=== PATIENT | male | born 1945 | race Caucasian/White ===

== ENCOUNTER 2021-02-11 09:09 | Inpatient (IN) | payer MEDICARE ==
[2021-02-11 10:09] LABS: BASOPHIL 1.2 % (0-2); EOSINOPHIL 1.7 % (0-7); HCT 38.7 % (42.0-52.0); LYMPHOCYTE 22.4 % (15-48); MCH 33.1 pg (25.0-31.0); MCHC 33.6 g/dL (32.0-36.0); MCV 98.5 fL (78.0-100.0); MONOCYTE 6.8 % (0-12); MPV 10.6 fL (6.0-9.5); NEUTROPHIL 67.7 % (41-80); NRBC 0; PLT 168 K/uL (150-400); RBC 3.93 M/uL (4.70-6.00); RDW 13.4 % (11.5-14.0); WBC 5.9 K/uL (4.0-10.5)
[2021-02-11 10:15] LABS: INR 3.04 (0.9-1.2)
[2021-02-11 10:20] LABS: ALBUMIN 3.3 g/dL (3.4-5.0); BILIRUBIN - TOTAL 0.8 mg/dL (0.2-1.0); CREATININE 0.87 mg/dL (0.67-1.17); GLOBULIN (CALCULATION) 2.7 g/dL; POTASSIUM 3.4 mmol/L (3.5-5.1)
[2021-02-11 10:28] LABS: CKMB 1.4 ng/mL (0.0-3.6)
[2021-02-11 14:53] LABS: BILIRUBIN NEGATIVE (NEGATIVE); BLOOD NEGATIVE Ery/uL (NEGATIVE); CLARITY CLEAR (CLEAR); COLOR YELLOW (YELLOW); GLUCOSE (U) NORMAL (NORMAL); LEUKOCYTES NEGATIVE Leu/uL (NEGATIVE); NITRITE NEGATIVE (NEGATIVE); PROTEIN 1+ mg/dL (NEGATIVE); SPECIFIC GRAVITY 1.015 (1.001-1.030)
[2021-02-11 15:04] LABS: SQUAMOUS EPITHELIAL CELLS RARE; URINARY WBC RARE
[2021-02-11 15:05] LABS: AMORPHOUS PHOSPHATE CRYSTALS TRACE
[2021-02-11] MEDS ORDERED: LIPITOR40 MG PO (15:29)
[2021-02-11] MEDS ORDERED: LASIX40 MG PO (15:29)
[2021-02-11] MEDS ORDERED: BETAPACE80 MG PO (15:30)
[2021-02-11] MEDS ORDERED: XARELTO10 MG PO (15:30)
[2021-02-11] MEDS ORDERED: LOVAZA1 GM PO (15:30)
[2021-02-11] MEDS ORDERED: VITAMIN B-650 MG PO (15:32)
[2021-02-11] MEDS ORDERED: ENTRESTO 49 MG1 EACH PO (15:32)
[2021-02-11] MEDS ORDERED: K-DUR20 MEQ PO (15:33)
[2021-02-12 03:57] LABS: BASOPHIL 0.9 % (0-2); EOSINOPHIL 1.7 % (0-7); HCT 36.1 % (42.0-52.0); HGB 12.1 g/dl (13.2-18.0); LYMPHOCYTE 23.6 % (15-48); MCH 33.3 pg (25.0-31.0); MCHC 33.5 g/dL (32.0-36.0); MCV 99.4 fL (78.0-100.0); MONOCYTE 11.3 % (0-12); MPV 10.9 fL (6.0-9.5); NEUTROPHIL 62.3 % (41-80); NRBC 0; PLT 141 K/uL (150-400); RBC 3.63 M/uL (4.70-6.00); RDW 13.5 % (11.5-14.0); WBC 6.6 K/uL (4.0-10.5)
[2021-02-12 04:14] LABS: BUN/CREAT RATIO (CALC) 21.7 RATIO; CREATININE 1.06 mg/dL (0.67-1.17); MAGNESIUM 2.1 mg/dL (1.8-2.4); PHOSPHORUS 3.6 mg/dL (2.6-4.7); POTASSIUM 3.8 mmol/L (3.5-5.1)
--- NOTE | 2021-02-12 23:06 | NUR ---
CHANGE IN RHYTHM ON MONITOR, STRIP PRINTED, [facility] CALLED TO REVIEW STRIP, [facility] ORDER STAT EKG, EKG OBTAINED AND SHOWED NSR WITH 1ST DEGREE AV BLOCK WITH PAC'S AND ABERRANT CONDUCTION NON SPECIFIC INTRAVENTRICULAR BLOCK ABNORMAL EKG
[2021-02-13 05:59] LABS: BASOPHIL 0.8 % (0-2); EOSINOPHIL 2.3 % (0-7); HCT 39.7 % (42.0-52.0); HGB 13.3 g/dl (13.2-18.0); LYMPHOCYTE 26.7 % (15-48); MCH 33.1 pg (25.0-31.0); MCHC 33.5 g/dL (32.0-36.0); MCV 98.8 fL (78.0-100.0); MONOCYTE 9.3 % (0-12); MPV 10.7 fL (6.0-9.5); NEUTROPHIL 60.8 % (41-80); NRBC 0; PLT 151 K/uL (150-400); RBC 4.02 M/uL (4.70-6.00); RDW 13.6 % (11.5-14.0); WBC 7.4 K/uL (4.0-10.5)
[2021-02-13 06:19] LABS: BUN/CREAT RATIO (CALC) 23.8 RATIO; CREATININE 0.84 mg/dL (0.67-1.17); POTASSIUM 4.4 mmol/L (3.5-5.1)
== END 2021-02-13 12:48 | disposition home or self-care (01) | DRG 310 ==
LOC: FER 09:09 → FTCU 13:54
PROVIDERS: Emergency Medicine; ADMIT Internal Medicine
DX: I47.2 Ventricular tachycardia (principal); I11.0 Hypertensive heart disease with heart failure; I50.9 Heart failure, unspecified; S80.01XA Contusion of right knee, initial encounter; E78.5 Hyperlipidemia, unspecified; I44.7 Left bundle-branch block, unspecified; I48.91 Unspecified atrial fibrillation; Z20.822 Contact with and (suspected) exposure to COVID-19; I25.10 Atherosclerotic heart disease of native coronary artery without angina pectoris; Z95.1 Presence of aortocoronary bypass graft; Z95.810 Presence of automatic (implantable) cardiac defibrillator; W19.XXXA Unspecified fall, initial encounter; I25.2 Old myocardial infarction; Z87.891 Personal history of nicotine dependence; Z79.01 Long term (current) use of anticoagulants; Z79.899 Other long term (current) drug therapy
CPT/HCPCS: 36415; 71045; 71046; 73560; 80048; 80053; 81001; 82550; 82553; 83605; 83735; 83880; 84100; 84145; 84484; 85025; 85610; 85730; 93005; 94010; J1885; U0002

== ENCOUNTER 2021-03-09 15:28 | Emergency (ER) | payer MEDICARE ==
[~2021-03-09 15:28] MED LIST: BETAPACE80 MG PO; ENTRESTO 49 MG1 EACH PO; K-DUR20 MEQ PO; LASIX40 MG PO; LIPITOR40 MG PO; LOVAZA1 GM PO; VITAMIN B-650 MG PO; XARELTO10 MG PO
[2021-03-09 19:34] LABS: BASOPHIL 0.7 % (0-2); HCT 36.6 % (42.0-52.0); HGB 12.4 g/dl (13.2-18.0); LYMPHOCYTE 30.4 % (15-48); MCH 32.9 pg (25.0-31.0); MCHC 33.9 g/dL (32.0-36.0); MCV 97.1 fL (78.0-100.0); MONOCYTE 8.6 % (0-12); MPV 10.8 fL (6.0-9.5); NRBC 0; PLT 156 K/uL (150-400); RBC 3.77 M/uL (4.70-6.00); WBC 6.1 K/uL (4.0-10.5)
[2021-03-09 20:28] LABS: ALBUMIN 3.1 g/dL (3.4-5.0); BILIRUBIN - TOTAL 0.7 mg/dL (0.2-1.0); BUN/CREAT RATIO (CALC) 19.7 RATIO; CREATININE 0.71 mg/dL (0.67-1.17); INR 1.71 (0.9-1.2); POTASSIUM 3.7 mmol/L (3.5-5.1); PROTHROMBIN TIME 19.1 SECONDS (11.4-13.6); PTT 34.9 SECONDS (22.2-34.7); TOTAL PROTEIN 6.1 g/dL (6.4-8.2)
== END 2021-03-10 02:48 | disposition home or self-care (01) ==
LOC: FER 15:28
PROVIDERS: Emergency Medicine
DX: M79.81 Nontraumatic hematoma of soft tissue (principal); M79.652 Pain in left thigh; I48.91 Unspecified atrial fibrillation
CPT/HCPCS: 36415; 80053; 84145; 84484; 85025; 85610; 85730; 93005; 93978; J1170; J2405; J7030; Q9967

== ENCOUNTER 2021-03-15 15:42 | Emergency (ER) | payer MEDICARE ==
[2021-03-15 16:34] LABS: BASOPHIL 0.8 % (0-2); EOSINOPHIL 1.9 % (0-7); HCT 35.8 % (42.0-52.0); LYMPHOCYTE 21.9 % (15-48); MCHC 33.5 g/dL (32.0-36.0); MCV 98.4 fL (78.0-100.0); MONOCYTE 7.4 % (0-12); MPV 10.2 fL (6.0-9.5); NEUTROPHIL 67.7 % (41-80); NRBC 0; PLT 204 K/uL (150-400); RBC 3.64 M/uL (4.70-6.00); RDW 13.9 % (11.5-14.0); WBC 6.5 K/uL (4.0-10.5)
[2021-03-15 16:50] LABS: INR 1.92 (0.9-1.2); PROTHROMBIN TIME 20.9 SECONDS (11.4-13.6); PTT 35.9 SECONDS (22.2-34.7)
[2021-03-15 17:13] LABS: ALBUMIN 3.3 g/dL (3.4-5.0); BILIRUBIN - TOTAL 0.7 mg/dL (0.2-1.0); BUN/CREAT RATIO (CALC) 17.9 RATIO; CREATININE 0.78 mg/dL (0.67-1.17); GLOBULIN (CALCULATION) 3.5 g/dL; POTASSIUM 4.4 mmol/L (3.5-5.1); TOTAL PROTEIN 6.8 g/dL (6.4-8.2)
[2021-03-15 17:33] LABS: CKMB 1.6 ng/mL (0.0-3.6)
== END 2021-03-15 22:40 | disposition other institution (70) ==
LOC: FER 15:42
PROVIDERS: Emergency Medicine
DX: I49.01 Ventricular fibrillation (principal); I10 Essential (primary) hypertension; I48.91 Unspecified atrial fibrillation; I25.2 Old myocardial infarction; I25.10 Atherosclerotic heart disease of native coronary artery without angina pectoris; Z20.822 Contact with and (suspected) exposure to COVID-19; I44.7 Left bundle-branch block, unspecified; Z95.810 Presence of automatic (implantable) cardiac defibrillator; Z79.01 Long term (current) use of anticoagulants
CPT/HCPCS: 36415; 71045; 80053; 82553; 83735; 84484; 85025; 85610; 85730; 93005; J0282; J7060; U0002

== ENCOUNTER 2021-08-12 18:54 | Inpatient (IN) | payer MEDICARE ==
[~2021-08-12] VITALS: Ht 182.9 cm; Wt 83.3 kg
[2021-08-12 19:50] LABS: BASOPHIL 0.4 % (0-2); EOSINOPHIL 0.8 % (0-7); HCT 28.4 % (42.0-52.0); HGB 9.2 g/dl (13.2-18.0); LYMPHOCYTE 16.1 % (15-48); MCH 30.1 pg (25.0-31.0); MCHC 32.4 g/dL (32.0-36.0); MCV 92.8 fL (78.0-100.0); MONOCYTE 6.9 % (0-12); MPV 10.9 fL (6.0-9.5); NEUTROPHIL 75.4 % (41-80); NRBC 0; PLT 206 K/uL (150-400); RBC 3.06 M/uL (4.70-6.00); RDW 18.4 % (11.5-14.0); WBC 5.2 K/uL (4.0-10.5)
[2021-08-12 20:10] LABS: BILIRUBIN - TOTAL 0.7 mg/dL (0.2-1.0); CREATININE 1.79 mg/dL (0.67-1.17); GLOBULIN (CALCULATION) 3.1 g/dL; POTASSIUM 3.1 mmol/L (3.5-5.1); TOTAL PROTEIN 6.1 g/dL (6.4-8.2)
[2021-08-12 20:15] LABS: BILIRUBIN NEGATIVE (NEGATIVE); BLOOD NEGATIVE Ery/uL (NEGATIVE); CLARITY CLEAR (CLEAR); COLOR YELLOW (YELLOW); GLUCOSE (U) NORMAL (NORMAL); LEUKOCYTES NEGATIVE Leu/uL (NEGATIVE); NITRITE NEGATIVE (NEGATIVE); PROTEIN NEGATIVE (NEGATIVE); UROBILINOGEN 0.2 mg/dL (0.2-1.0)
[2021-08-13] MEDS ORDERED: POTASSIUM CHLO20 ME2 PO (00:36)
[2021-08-13] MEDS ORDERED: AMIODARONE HCL200 M1 PO (00:39)
[2021-08-13] MEDS ORDERED: ENTRESTO 24 MG1 EACH PO (00:42)
[2021-08-13] MEDS ORDERED: METOLAZONE 5MG T5 M1 PO (00:43)
[2021-08-13] MEDS ORDERED: BUMETANIDE2 MG PO (00:46)
[2021-08-13 06:06] LABS: BASOPHIL 0.5 % (0-2); EOSINOPHIL 0.5 % (0-7); HCT 27.3 % (42.0-52.0); HGB 9.1 g/dl (13.2-18.0); LYMPHOCYTE 17.5 % (15-48); MCH 31.1 pg (25.0-31.0); MCHC 33.3 g/dL (32.0-36.0); MCV 93.2 fL (78.0-100.0); MONOCYTE 7.1 % (0-12); MPV 10.7 fL (6.0-9.5); NEUTROPHIL 74.1 % (41-80); NRBC 0; PLT 190 K/uL (150-400); RBC 2.93 M/uL (4.70-6.00); RDW 18.3 % (11.5-14.0); WBC 6.2 K/uL (4.0-10.5)
[2021-08-13 06:18] LABS: INR 1.78 (0.9-1.2); PROTHROMBIN TIME 19.9 SECONDS (11.8-13.4); PTT 32.3 SECONDS (24.4-34.7)
[2021-08-13 06:38] LABS: BUN/CREAT RATIO (CALC) 38.5 RATIO; CREATININE 1.61 mg/dL (0.67-1.17); FT4 (FREE T4) 1.4 ng/dL (0.76-1.46); GLOBULIN (CALCULATION) 3.3 g/dL; MAGNESIUM 2.3 mg/dL (1.8-2.4); PHOSPHORUS 3.9 mg/dL (2.6-4.7); POTASSIUM 2.8 mmol/L (3.5-5.1); TOTAL PROTEIN 6.3 g/dL (6.4-8.2)
[2021-08-13 06:43] LABS: CKMB 6.8 ng/mL (0.0-3.6)
--- NOTE | 2021-08-13 10:22 | NUR ---
08/13/21 Please consider discharge or full admit. Thank you.
[2021-08-14 05:08] LABS: BASOPHIL 0.5 % (0-2); EOSINOPHIL 1.4 % (0-7); HCT 30.6 % (42.0-52.0); LYMPHOCYTE 17.2 % (15-48); MCH 30.5 pg (25.0-31.0); MCHC 32.7 g/dL (32.0-36.0); MCV 93.3 fL (78.0-100.0); MONOCYTE 7.4 % (0-12); MPV 10.2 fL (6.0-9.5); NEUTROPHIL 73.2 % (41-80); NRBC 0; PLT 200 K/uL (150-400); RBC 3.28 M/uL (4.70-6.00); RDW 18.4 % (11.5-14.0); WBC 6.2 K/uL (4.0-10.5)
[2021-08-14 05:23] LABS: BUN/CREAT RATIO (CALC) 35.5 RATIO; CREATININE 1.55 mg/dL (0.67-1.17); MAGNESIUM 2.4 mg/dL (1.8-2.4); POTASSIUM 3.3 mmol/L (3.5-5.1)
[2021-08-14 14:40] LABS: IRON % SATURATION 7.6 %SAT (20-50)
[2021-08-14 15:07] LABS: FOLIC ACID (SERUM) 18.1 ng/mL (8.6-58.9)
[2021-08-15 06:48] LABS: BASOPHIL 0.7 % (0-2); HCT 31.3 % (42.0-52.0); HGB 10.1 g/dl (13.2-18.0); LYMPHOCYTE 15.4 % (15-48); MCH 30.5 pg (25.0-31.0); MCHC 32.3 g/dL (32.0-36.0); MCV 94.6 fL (78.0-100.0); MONOCYTE 6.9 % (0-12); MPV 10.6 fL (6.0-9.5); NEUTROPHIL 75.7 % (41-80); NRBC 0; PLT 202 K/uL (150-400); RBC 3.31 M/uL (4.70-6.00); RDW 18.6 % (11.5-14.0); WBC 5.8 K/uL (4.0-10.5)
[2021-08-15 07:08] LABS: BUN/CREAT RATIO (CALC) 30.2 RATIO; CREATININE 1.72 mg/dL (0.67-1.17); MAGNESIUM 2.4 mg/dL (1.8-2.4); POTASSIUM 3.9 mmol/L (3.5-5.1)
--- NOTE | 2021-08-15 16:31 | NUR ---
08/15/21 Mr. Noyola lives alone. He has 2 sons. One son lives near by and is supportive. He takes him to the grocery and assures patient has meals. - Mr. Noyola has a walker, 3in1, and s. seat. Mr. Noyola chose [facility]; affliation understood. A referral was made to [facility] via [facility].
[2021-08-16 06:41] LABS: BUN/CREAT RATIO (CALC) 30.4 RATIO; CREATININE 1.61 mg/dL (0.67-1.17); MAGNESIUM 2.3 mg/dL (1.8-2.4)
[2021-08-17 06:15] LABS: BASOPHIL 0.5 % (0-2); EOSINOPHIL 1.3 % (0-7); HCT 27.8 % (42.0-52.0); HGB 9.3 g/dl (13.2-18.0); LYMPHOCYTE 16.4 % (15-48); MCH 30.7 pg (25.0-31.0); MCHC 33.5 g/dL (32.0-36.0); MCV 91.7 fL (78.0-100.0); MONOCYTE 7.6 % (0-12); MPV 10.6 fL (6.0-9.5); NEUTROPHIL 73.7 % (41-80); NRBC 0; PLT 196 K/uL (150-400); RBC 3.03 M/uL (4.70-6.00); RDW 18.2 % (11.5-14.0); WBC 6.2 K/uL (4.0-10.5)
[2021-08-17 06:37] LABS: BUN/CREAT RATIO (CALC) 34.5 RATIO; CREATININE 1.39 mg/dL (0.67-1.17); POTASSIUM 3.2 mmol/L (3.5-5.1)
[2021-08-17 06:45] LABS: LYMPHOCYTE(M) 19 % (15-48); MONOCYTE(M) 11 % (0-12); NEUTROPHILS(M) 70 % (41-80); PLATELET ESTIMATE NORMAL; TOTAL CELL COUNT 100
[2021-08-17 06:46] LABS: PLATELET MORPHOLOGY NORMAL
[2021-08-17 15:05] LABS: CREATININE 1.64 mg/dL (0.67-1.17); MAGNESIUM 2.3 mg/dL (1.8-2.4); POTASSIUM 3.6 mmol/L (3.5-5.1)
[2021-08-18 06:21] LABS: BASOPHIL 0.3 % (0-2); EOSINOPHIL 0.1 % (0-7); HCT 28.8 % (42.0-52.0); HGB 9.6 g/dl (13.2-18.0); LYMPHOCYTE 13.9 % (15-48); MCH 30.5 pg (25.0-31.0); MCHC 33.3 g/dL (32.0-36.0); MCV 91.4 fL (78.0-100.0); MONOCYTE 6.9 % (0-12); MPV 10.8 fL (6.0-9.5); NEUTROPHIL 78.4 % (41-80); NRBC 0; PLT 222 K/uL (150-400); RBC 3.15 M/uL (4.70-6.00); RDW 18.4 % (11.5-14.0); WBC 7.2 K/uL (4.0-10.5)
--- NOTE | 2021-08-18 06:40 | NUR ---
PT STRAIGHT CATH PER MD ORDER, 900CC OUT, PT TOLERATED WELL.
[2021-08-18 06:55] LABS: ALBUMIN 3.3 g/dL (3.4-5.0); BILIRUBIN - TOTAL 1.1 mg/dL (0.2-1.0); BUN/CREAT RATIO (CALC) 31.5 RATIO; CREATININE 1.49 mg/dL (0.67-1.17); GLOBULIN (CALCULATION) 3.2 g/dL; MAGNESIUM 2.2 mg/dL (1.8-2.4); TOTAL PROTEIN 6.5 g/dL (6.4-8.2)
--- NOTE | 2021-08-18 15:55 | NUR ---
08/18/21 Patient was provided with emergency alert systems brochures.
[2021-08-19 09:23] LABS: BUN/CREAT RATIO (CALC) 30.2 RATIO; CREATININE 1.72 mg/dL (0.67-1.17); POTASSIUM 4.1 mmol/L (3.5-5.1)
[2021-08-19] MEDS ORDERED: ASPIRIN EC81 MG PO (12:33)
--- NOTE | 2021-08-19 12:54 | NUR ---
08/19/21 Patient has decided on SNF placement. Referrals have been sent to patient's preferences of [facility].
== END 2021-08-19 17:36 | DRG 291 ==
LOC: FER 18:54 → FTCU 22:48 → FER 23:15 → FTCU 08-19 17:36
PROVIDERS: Emergency Medicine; Family Medicine; Internal Medicine Cardiovascular Disease; Nurse Practitioner; Nurse Practitioner Family; ADMIT Internal Medicine
DX: I13.0 Hypertensive heart and chronic kidney disease with heart failure and stage 1 through stage 4 chronic kidney disease, or unspecified chronic kidney disease (principal); I50.23 Acute on chronic systolic (congestive) heart failure; N17.9 Acute kidney failure, unspecified; N18.32 Chronic kidney disease, stage 3b; I95.9 Hypotension, unspecified; Z20.822 Contact with and (suspected) exposure to COVID-19; D50.9 Iron deficiency anemia, unspecified; E87.6 Hypokalemia; N14.1 Nephropathy induced by other drugs, medicaments and biological substances; T50.2X5A Adverse effect of carbonic-anhydrase inhibitors, benzothiadiazides and other diuretics, initial encounter; R55 Syncope and collapse; Z95.810 Presence of automatic (implantable) cardiac defibrillator; N40.1 Benign prostatic hyperplasia with lower urinary tract symptoms; I25.10 Atherosclerotic heart disease of native coronary artery without angina pectoris; I48.91 Unspecified atrial fibrillation; S09.90XA Unspecified injury of head, initial encounter; R33.8 Other retention of urine; E78.5 Hyperlipidemia, unspecified; I25.5 Ischemic cardiomyopathy; Z95.1 Presence of aortocoronary bypass graft; W01.198A Fall on same level from slipping, tripping and stumbling with subsequent striking against other object, initial encounter; I25.2 Old myocardial infarction; Z87.891 Personal history of nicotine dependence; Z82.49 Family history of ischemic heart disease and other diseases of the circulatory system
CPT/HCPCS: 36415; 36600; 70450; 71045; 72192; 80048; 80053; 80061; 81003; 82553; 82607; 82746; 82803; 83540; 83550; 83605; 83735; 83880; 84100; 84439; 84443; 84484; 85025; 85610; 85730; 93005; 93880; 94010; 94668; 94760; 94762; 97162; 97166; 97530; 97530-GP; 97535; J2270; J2405; J2916; P9046; U0002

== ENCOUNTER 2021-08-20 21:05 | Emergency (ER) | payer MEDICARE ==
[~2021-08-20 21:05] MED LIST changes: +AMIODARONE HCL200 M1 PO; +ASPIRIN EC81 MG PO; +BUMETANIDE2 MG PO; +ENTRESTO 24 MG1 EACH PO; +METOLAZONE 5MG T5 M1 PO; +POTASSIUM CHLO20 ME2 PO
[2021-08-20 21:34] LABS: BASOPHIL 0 % (0-2); EOSINOPHIL 0 % (0-7); HCT 32.9 % (42.0-52.0); HGB 10.7 g/dl (13.2-18.0); LYMPHOCYTE 5.4 % (15-48); MCH 30.3 pg (25.0-31.0); MCHC 32.5 g/dL (32.0-36.0); MCV 93.2 fL (78.0-100.0); MONOCYTE 7.7 % (0-12); MPV 11.7 fL (6.0-9.5); NEUTROPHIL 86.5 % (41-80); NRBC 0.2; PLT 225 K/uL (150-400); RBC 3.53 M/uL (4.70-6.00); RDW 20.2 % (11.5-14.0); WBC 12.1 K/uL (4.0-10.5)
[2021-08-20 21:56] LABS: BILIRUBIN NEGATIVE (NEGATIVE); BLOOD 2+ Ery/uL (NEGATIVE); CLARITY CLEAR (CLEAR); COLOR YELLOW (YELLOW); GLUCOSE (U) NORMAL (NORMAL); LEUKOCYTES TRACE Leu/uL (NEGATIVE); NITRITE NEGATIVE (NEGATIVE); PROTEIN TRACE (LOW) mg/dL (NEGATIVE); UROBILINOGEN 0.2 mg/dL (0.2-1.0)
[2021-08-20 22:03] LABS: BACTERIA TRACE; TRANSITIONAL EPITHELIAL CELLS RARE
[2021-08-20 22:04] LABS: LACTIC ACID 4.4 mmol/L (0.4-1.9)
[2021-08-20 22:12] LABS: ALBUMIN 3.5 g/dL (3.4-5.0); BILIRUBIN - TOTAL 2.6 mg/dL (0.2-1.0); CREATININE 2.49 mg/dL (0.67-1.17); PHOSPHORUS 5.5 mg/dL (2.6-4.7); POTASSIUM 5.3 mmol/L (3.5-5.1); TOTAL PROTEIN 6.5 g/dL (6.4-8.2)
[2021-08-20 22:14] LABS: MAGNESIUM 2.9 mg/dL (1.8-2.4)
[2021-08-20 23:30] LABS: CORONAVIRUS 2019 SARS-COV-2 NEGATIVE (NEGATIVE); INFLUENZA A NAA NEGATIVE (NEGATIVE)
[2021-08-21 03:26] LABS: ALBUMIN 2.7 g/dL (3.4-5.0); BILIRUBIN - TOTAL 2.8 mg/dL (0.2-1.0); BUN/CREAT RATIO (CALC) 28.3 RATIO; CREATININE 2.51 mg/dL (0.67-1.17); GLOBULIN (CALCULATION) 3.5 g/dL; POTASSIUM 5.1 mmol/L (3.5-5.1); TOTAL PROTEIN 6.2 g/dL (6.4-8.2)
[2021-08-21 04:45] LABS: INR 2.82 (0.9-1.2); PROTHROMBIN TIME 28.7 SECONDS (11.8-13.4); PTT 44.4 SECONDS (24.4-34.7)
[2021-08-21 06:05] LABS: BASOPHIL 0.1 % (0-2); EOSINOPHIL 0 % (0-7); HCT 29.3 % (42.0-52.0); HGB 9.9 g/dl (13.2-18.0); LYMPHOCYTE 4.3 % (15-48); MCH 31.2 pg (25.0-31.0); MCHC 33.8 g/dL (32.0-36.0); MCV 92.4 fL (78.0-100.0); MONOCYTE 6.4 % (0-12); MPV 11.8 fL (6.0-9.5); NEUTROPHIL 88.7 % (41-80); NRBC 0; PLT 185 K/uL (150-400); RBC 3.17 M/uL (4.70-6.00); WBC 12.1 K/uL (4.0-10.5)
[2021-08-21 06:15] LABS: D-DIMER 2.25 ug/mLFEU (0.00-0.41); INR 3.1 (0.9-1.2); PROTHROMBIN TIME 30.9 SECONDS (11.8-13.4); PTT 43.4 SECONDS (24.4-34.7)
[2021-08-21 06:35] LABS: TOTAL CELL COUNT 100
[2021-08-21 06:39] LABS: ANISOCYTOSIS MODERATE; ELLIPTOCYTES (OVALOCYTES) RARE; LYMPHOCYTE(M) 6 % (15-48); MONOCYTE(M) 2 % (0-12); NEUTROPHILS(M) 92 % (41-80); POIKILOCYTOSIS SLIGHT; SPHEROCYTES RARE
[2021-08-21 06:41] LABS: ECHINOCYTES (BURR CELLS) 2+
[2021-08-21 06:42] LABS: PLATELET ESTIMATE NORMAL; PLATELET MORPHOLOGY NORMAL
[2021-08-21 17:56] LABS: BUN/CREAT RATIO (CALC) 29.9 RATIO; CREATININE 2.51 mg/dL (0.67-1.17); POTASSIUM 4.2 mmol/L (3.5-5.1)
[2021-08-23 05:08] LABS: HBSAG SCREEN Negative (Negative); HEP A AB, IGM Negative (Negative); HEP B CORE AB, IGM Negative (Negative); HEP C VIRUS AB <0.1 (0.0-0.9)
== END 2021-08-21 20:23 | disposition other institution (70) ==
LOC: FER 21:05
PROVIDERS: Emergency Medicine; Emergency Medicine Emergency Medical Services
DX: I95.9 Hypotension, unspecified (principal); J12.9 Viral pneumonia, unspecified; E87.2 Acidosis; I13.0 Hypertensive heart and chronic kidney disease with heart failure and stage 1 through stage 4 chronic kidney disease, or unspecified chronic kidney disease; N18.9 Chronic kidney disease, unspecified; I50.9 Heart failure, unspecified; K76.7 Hepatorenal syndrome; I48.91 Unspecified atrial fibrillation; Z20.822 Contact with and (suspected) exposure to COVID-19
CPT/HCPCS: 36415; 36600; 70450; 71250; 72125; 80048; 80053; 80074; 81001; 82140; 82150; 82550; 82803; 83605; 83735; 83880; 84100; 84145; 84484; 85025; 85362; 85379; 85384; 85610; 85730; 87040; 87088; 93005; 96365; 96366; 96367; 96368; 96375; C1751; G0480; J1170; J1250; J1265; J1940; J2020; J2543; J7030; P9046; U0002